=== PATIENT | male | born 1980 | race Caucasian/White ===

== ENCOUNTER → 2020-04-19 | Outpatient (CLI) | payer OTHER | LOC: M LABSMTC 10:25 | PROVIDERS: ATTEND Orthopaedic Surgery | DX: Z11.59 Encounter for screening for other viral diseases (principal); Z20.828 Contact with and (suspected) exposure to other viral communicable diseases | CPT/HCPCS: C9803; U0003 ==

== ENCOUNTER 2021-07-19 08:01 | Emergency (ER) | payer OTHER ==
[~2021-07-19] VITALS: Ht 180.3 cm; Wt 210.0 kg
[2021-07-19] MEDS ORDERED: TRAZ-252 PO (08:07)
[2021-07-19] MEDS ORDERED: MOBI15TA PO (08:07)
[2021-07-19] MEDS ORDERED: AUGM875T28 PO (08:08)
[2021-07-19] MEDS ORDERED: PROBCAP14 PO (08:08)
[2021-07-19] MEDS ORDERED: CLAR10CA3 PO (08:08)
--- OUTSIDE RECORDS SUMMARY | 2021-07-19 08:45 | CCD ---
Author Author [facility] Organization [facility] Address Unknown Phone Unavailable Care Team Providers Care Machine Cutter Name Role Phone GENNA FINLEY MD Unavailable Unavailable GENNA FINLEY MD Unavailable Unavailable GENNA FINLEY MD Unavailable Unavailable GENNA FINLEY MD Unavailable Unavailable GENNA FINLEY MD Unavailable Unavailable GENNA FINLEY MD Unavailable Unavailable GENNA FINLEY MD Unavailable Unavailable GENNA FINLEY MD Unavailable Unavailable GENNA FINLEY MD Unavailable Unavailable GENNA FINLEY MD Unavailable Unavailable GENNA FINLEY MD Unavailable Unavailable GENNA FINLEY MD Unavailable Unavailable GENNA FINLEY MD Unavailable Unavailable GENNA FINLEY MD Unavailable Unavailable GENNA FINLEY MD Unavailable Unavailable GENNA FINLEY MD Unavailable Unavailable GENNA FINLEY MD Unavailable Unavailable GENNA FINLEY MD Unavailable Unavailable GENNA FINLEY MD Unavailable Unavailable GENNA FINLEY MD Unavailable Unavailable GENNA FINLEY MD Unavailable Unavailable GENNA FINLEY MD Unavailable Unavailable GENNA FINLEY MD Unavailable Unavailable GENNA FINLEY MD Unavailable Unavailable GENNA FINLEY MD Unavailable Unavailable GENNA FINLEY MD Unavailable Unavailable GENNA FINLEY MD Unavailable Unavailable GENNA FINLEY MD Unavailable Unavailable GENNA FINLEY MD Unavailable Unavailable GENNA FINLEY MD Unavailable Unavailable GENNA FINLEY MD Unavailable Unavailable GENNA FINLEY MD Unavailable Unavailable GENNA FINLEY MD Unavailable Unavailable Re-disclosure Warning The records that you are about to access may contain information from federally-assisted alcohol or drug abuse programs. If such information is present, then the following federally mandated warning applies: This information has been disclosed to you from records protected by federal confidentiality rules (42 CFR part 2). The federal rules prohibit you from making any further disclosure of this information unless further disclosure is expressly permitted by the written consent of the person to whom it pertains or as otherwise permitted by 42 CFR part 2. A general authorization for the release of medical or other information is NOT sufficient for this purpose. The Federal rules restrict any use of the information to criminally investigate or prosecute any alcohol or drug abuse patient.The records that you are about to access may contain highly sensitive health information, the redisclosure of which is protected by Article 27-F of the [facility] Public Health law. If you continue you may have access to information: Regarding HIV / AIDS; Provided by facilities licensed or operated by the [facility] Office of Mental Health; or Provided by the [facility] Office for People With Developmental Disabilities. If such information is present, then the following [facility] mandated warning applies: This information has been disclosed to you from confidential records which are protected by state law. State law prohibits you from making any further disclosure of this information without the specific written consent of the person to whom it pertains, or as otherwise permitted by law. Any unauthorized further disclosure in violation of state law may result in a fine or group home sentence or both. A general authorization for the release of medical or other information is NOT sufficient authorization for further disc losure. Encounters Encounter Providers Location Date Indications Data Source(s ) Office Visit Attender: GENNA FINLEY MD Physical Therapy 08:45:00 AM EDT [facility] ([facility]) Medications No Information Insurance Providers Payer name Policy type / Coverage type Policy ID Covered republican ID Covered republican's relationship to knapp Policy [place] Plan Information [facility] [id number] 20 [id number] [facility] [id number] SP [id number] Problems, Conditions, and Diagnoses No Information Surgeries/Procedures No Information Results No Information Social History No Information
--- OUTSIDE RECORDS SUMMARY | 2021-07-19 08:45 | CCD | Continuity of Care Document ---
Author Author Willis ROSS MD Organization Unknown Address [address] [place] [id number] Phone [phone] Care Team Providers Care Tractor Trailer Truck Driver Name Role Phone Wesley Dexter MD AUTM Unavailable Leora Simons MD AUT[facility] [phone] Problems Description No Information Available Social History Type Date Description Comments Sex Unknown ETOH Use Occasionally consumes alcohol Tobacco Use Start: Unknown End: Unknown Patient is a former smoker Allergies and adverse reactions Description No Known Drug Allergies Medications Active Medications SIG Qnty Indications Ordering Provide r Date Percocet 5-325mg Tablets 1-2 tabs every 4- 6 hours prn For Post Op Pain. (Please DO Not Fill Until 04/24/2020). 20tabs David Callejas, P.A. 04/09/2020 Mobic 7.5mg Tablets 1 by mouth after meals twice a day Unknown Immunizations Description No Information Available Vital Signs Date Vital Result Comment 02/12/2020 10:10am Body Temperature 99.0 F Height 70 inches 5'10" Weight 212.00 lb BMI (Body Mass Index) 30.4 kg/m2 Results Description No Information Available Procedures Description No Information Available Medical Devices Description No Information Available Encounters Description No Information Available Assessments Description No Information Available Plan of Treatment 05/26/2020 - [place] Ross MD* Z47.89 Encounter for other orthopedic aftercare* Follow up:* prn Functional Status Description No Information Available Mental Status Description No Information Available Referrals Description No Information Available
[2021-07-19] MEDS ORDERED: RABIES VACCINE HUMAN 2.5 INTERNATIONAL UNITS/ML VIAL (90675) IM ONE (08:55)
[2021-07-19 09:23] VITALS: BP 118/78
== END 2021-07-19 09:33 | disposition home or self-care (01) ==
LOC: M ED 08:01
DX: Z23 Encounter for immunization (principal); W55.01XD Bitten by cat, subsequent encounter